=== PATIENT | male | born 1950 | race Caucasian/White ===

== ENCOUNTER 2019-12-08 09:27 | Outpatient (CLI) | payer MEDICARE, SELFPAY ==
--- NOTE | 2019-12-08 09:29 | ECG_ITS ---
Measurements Intervals [place] Rate: 68 P: 68 AK: 179 QRS: 18 QRSD: 100 T: 53 QT: 370 QTc: 395 Interpretive Statements SINUS RHYTHM DELAYED PRECORDIAL R/S TRANSITION BORDERLINE ECG Electronically Signed On 12-08-2019 11:09:04 GARDE MANAGER by Sridhar Rios D.O.
== END 2019-12-08 09:28 | disposition home or self-care (01) ==
PROVIDERS: PCP Internal Medicine; Visit Provider Orthopaedic Surgery
DX: I10 Essential (primary) hypertension (principal); R94.31 Abnormal electrocardiogram [ECG] [EKG]
CPT/HCPCS: 93005

== ENCOUNTER 2019-12-18 00:39 | Day surgery (SDC) | payer MEDICARE, SELFPAY ==
[2019-11-30 14:19] VITALS: BMI 32.8
[2019-12-18] VITALS (9 sets, daily range): BP systolic 98–148; BP diastolic 56–87; PULSE 56–80; RESP 14–18; TEMP 36.3–36.6; O2SAT 94–98
[2019-12-18] MEDS: LACTATED RINGERS 1,000 ML 30 ML IV CONT ×2 (08:10→11:35)
--- NOTE | 2019-12-18 08:41 | WPDANESEPPF ---
Anes - Initial Pre Proc Eval Procedure: Operation Date: 12/18/19 09:00 Proposed Procedures p Right Open Rotator Cuff Repair With Distal Clavicle Excision - Momo Trinidad MD Date/Time: 12/18/19 08:41 Surgeon: Momo Trinidad MD Pre Op Diagnosis: Right Rotator Cuff Tear With AC Arthritis Patient Data Age: 69 Gender: M Height: 6 ft 2 in Weight: 116.3 kg Last Vital Signs Temp 36.6 C 12/18/19 07:30 Pulse 67 12/18/19 07:30 Resp 18 12/18/19 07:30 BP 148/87 H 12/18/19 07:30 Pulse Ox 98 12/18/19 07:30 Allergies Allergy/AdvReac Type Severity Reaction Status Date / Time codeine Allergy Unknown Unknown-STRANGE Verified 12/18/19 08:13 FEELING & TEARFULL Home Medications Medication Instructions Recorded Confirmed Type ascorbic acid (vitamin C) 1,000 mg 500 mg PO BID 10/04/19 12/18/19 History tablet aspirin 325 mg tablet 325 mg PO DAILY 10/04/19 12/18/19 History biotin 10,000 mcg capsule 10,000 mcg PO DAILY 10/04/19 12/18/19 History calcium carbonate 600 mg calcium 600 mg PO DAILY 10/04/19 12/18/19 History (1,500 mg) tablet cetirizine 10 mg capsule 10 mg PO DAILY cap 10/04/19 11/30/19 History lisinopril 30 mg tablet 30 mg PO DAILY 10/04/19 12/18/19 History vitamin E (dl, acetate) 400 unit 400 unit PO DAILY 10/04/19 12/18/19 History capsule cholecalciferol (vitamin D3) 5,000 unit PO DAILY 11/30/19 12/18/19 History cyanocobalamin (vitamin B-12) 2,500 mcg PO DAILY 11/30/19 12/18/19 History magnesium 400 mg PO DAILY 11/30/19 12/18/19 History multivitamin 1 tablet PO DAILY 11/30/19 12/18/19 History oxymetazoline 1 spray INTRANASAL HS 11/30/19 12/18/19 History pyridoxine (vitamin B6) 100 mg PO BID 11/30/19 12/18/19 History Patient hx anesthesia problems: none Family hx anesthesia problems: none PMFSH Past Medical History Medical History Hypertension QUENTIN (obstructive sleep apnea) Psoriasis Family History Family History Sibling Family history of arthritis Patient's sister is Mother Patient's mother is Father Patient's father is Other Diabetes mellitus Family history of malignant neoplasm Hypertension Social History Social History Smoking status: Former smoker Second hand tobacco smoke exposure: No Smoking end date: 11/01/71 Alcohol intake: current Anes - Eval Final PreProcedure Day of Procedure 12/18/19 08:41 Patient weight: obese Heart: regular rate and rhythm Lungs: clear to auscultation Airway: Mallampati scale class II Neurological: alert and oriented Last oral intake: >/= 8 hours ASA classification: III Emergent: no Anesthetic plan: proceed Anesthesia type and monitoring: general LMA and standard monitoring Informed Consent: The patient's anesthetic plan and its attendant risks and benefits were discussed with the patient/family/POA. Questions were solicited and answers provided to the satisfaction of the patient/family/POA.
--- NOTE | 2019-12-18 09:25 | WPDHPUPDATE1 ---
History and Physical Update Update Date/Time: 12/18/19 09:25 History and Physical has been reviewed, including an updated exam of the patient. There are NO changes in the patient's condition. Risks, benefits, and alternatives have been discussed and questions answered. Patient agrees to proceed with procedure.
--- NOTE | 2019-12-18 09:44 | WPDANESPNB ---
Anes - Peripheral Nerve Block Date/Time: 12/18/19 09:44 I have discussed with the patient/family/POA the placement of a peripheral nerve block for post-operative pain management, including associated risks, benefits, complications, and side effects. Alternative methods of post-operative analgesia were detailed. Questions were solicited and answers provided to the satisfaction of the patient/family/POA. Time-Out: A pre-procedural Time-Out was completed immediately before starting the procedure and confirmed: Patient Identification, Site, Procedure, Patient Position and the Availability of Requisite Equipment. Clinical Indications: Acute post-operative pain management requested by the operative surgeon. Nerve Block Insertion Note Anes-nerve block: interscalene right Needle: 22 gauge, stimulating, insulated echogenic needle. Needle length: 50 mm Technique: nerve stimulation lost at (mA) (0.3) and ultrasound Injectate: bupivacaine 0.5% with epi 5 mcg/ml (30ml) Observations: tolerated well Complications: none Procedure start time:: 934 Procedure end time:: 940
[2019-12-18] MEDS: ceFAZolin 2 GM/D5W 50 ML 2 GM/50 ML BAG IVPB (09:50)
[2019-12-18] MEDS: BUPIVACAINE/EPINEPHRINE 0.25% 10 ML VIAL INFILTRATE (10:52)
--- NOTE | 2019-12-18 11:52 | PM.PROC ---
Procedure Note - Detailed Date of procedure: 12/18/19 Pre-op diagnosis: Right Rotator Cuff Tear With AC Arthritis Post-op diagnosis: same Procedure performed: Right shoulder rotator cuff repair with acromioplasty and distal clavicle excision Description of procedure: Patient was identified and proper site identified. In the preop holding area the anesthesia team performed a right upper extremity block. He was then taken to the operating room and transferred to the or table taking care to pad the torso and extremities. After general anesthetic induction and intubation, he was put in a semi beach chair position in the usual manner for a right shoulder procedure. His head was secured taking care to neither rotate nor extend the head and neck. The right upper extremity was prepped and draped free in usual sterile fashion. The subcutaneous tissue in the area of the incision was injected with 10 cc of 0.25% Marcaine and epinephrine solution. An oblique anterior incision was made extending from the AC joint distally in line with the fibers of the deltoid. Subcutaneous tissue was sharply dissected down to the deltoid fascia. The deltoid was dissected off the anterior portion of the acromion in the distal end of the clavicle. A 2 cm split was made at the junction between the anterior and middle thirds of the deltoid. Using the microsagittal saw the last 8 mm of clavicle removed. The saw was also used to perform the acromioplasty and then the undersurface of the acromion was rasped smooth. The cuff was inspected. The tear was oblique and the edges were able to be brought back into close proximity. The edges were freshened up and the tuberosity prepared for the repair. A [id number] repair with 2. Ethibond suture was carried out and then 2. Ethibond suture passed through a bony bridge was used to secure the tendon back to the prepared greater tuberosity. This gave a peralta repair which was stable as the shoulder was taken through range of motion. The wound was irrigated with sterile antibiotic solution. The deltoid was repaired back to the acromion with 2. Ethibond suture passed through bone and the remainder of the deltoid repair carried out with 2. Vicryl. Subcutaneous tissue was reapproximated with 2. Strata fix and then tissue adhesive used for the skin. Sterile dressing was applied. There were no known intraoperative complications, and perioperative antibiotics were administered. [facility] Surgeon: Momo Trinidad MD Print Press Operator: Jake Estimated blood loss (mL): 30 Drains: No Packing: No Pathology: none sent Complications: No immediate complications Condition: stable Disposition: PACU
== END 2019-12-18 13:25 | disposition home or self-care (01) ==
PROVIDERS: PCP Internal Medicine; Visit Provider Orthopaedic Surgery
PROC: (CPT 23420; principal; 2019-12-18 09:00)
DX: M75.101 Unspecified rotator cuff tear or rupture of right shoulder, not specified as traumatic (principal); M19.011 Primary osteoarthritis, right shoulder; G89.18 Other acute postprocedural pain; I10 Essential (primary) hypertension; G47.33 Obstructive sleep apnea (adult) (pediatric); L40.9 Psoriasis, unspecified; Z79.82 Long term (current) use of aspirin; Z87.891 Personal history of nicotine dependence; E66.9 Obesity, unspecified; Z68.32 Body mass index [BMI] 32.0-32.9, adult
CPT/HCPCS: 23120; 23420; 64415; A4565; J0690; J1100; J1170; J2250; J2405; J2704; J3010; J7120

== ENCOUNTER 2023-04-16 08:05 | Outpatient (CLI) | payer MEDICARE, SELFPAY ==
--- NOTE | 2023-04-29 15:50 | WPDSLEEPSTUD ---
Sleep Study Date of Study: 04/16/23 Ordering Provider: Mohinder Cardoso DO Interpreting Physician: Melani Chong MD Sleep Study Type: Split Polysomnogram Height: 1.85 m Weight: 117.934 kg Body Mass Index: 34.2 Neck Circumference (inches): 18 Holly: 0 Reason for Sleep Study History of severe obstructive sleep apnea, * 12/19/2009, severe obstructive sleep apnea, AHI 81.6, desaturation to 85%, severe myoclonus optimal pressure CPAP 12 cm Sleep History Radhames Mims is a 73-year-old man with history of severe obstructive sleep apnea diagnosed in 2009. His optimal pressure was CPAP 12 cm. He is being tested now because his CPAP broke. It is over 7 years old. He was using it routinely and he was benefiting from it. While using CPAP, he never awakens from sleep short of breath. He never at night with heartburn, belching or cough.??He never snores, never snores loudly enough that others complain. He never has trouble sleeping when he has a cold. He never wakes up gasping for breath during the night. He never has breathing problems at night. He never sweats excessively at night. He never notices his heart pounding or beating irregularly during the night. He never falls asleep during the day. He never falls asleep involuntarily and never falls asleep while driving. He never experiences loss of muscle tone with strong emotion. He never feels paralyzed on waking or falling asleep. He never experiences vivid dreams upon waking or falling asleep. He never feels afraid of going to sleep. He never has nightmares. He rarely recalls his dreams. He never has thoughts racing through his mind. He never feels sad or depressed. He never feels anxiety or worry about things. He never notices parts of his body jerk. He never kicks during the night. He never feels crawling or aching feelings in his legs. He never feels leg pain at night. He never grinds his teeth and never has morning jaw pain. He never feels bothered by pain during the day and is never awakened by pain during the night. He wakes up feeling stiff, sore, and achy in the morning with pain in his neck, spine, or joints. Normal bedtime is around 9:30 p.m. usually falling asleep within 30-40 minutes. He typically gets about 8 hours of sleep per night. His wake up time is 6-7 a.m.. Habits:??Tobacco: former Caffeine: none. Alcohol: none Recreational substances: none PMFSH Past Medical History Medical History Hypertension QUENTIN (obstructive sleep apnea) Psoriasis Surgical History Surgical History Right rotator cuff tear Arthroscopic debridement December 2019 Family History Family History Sibling Family history of arthritis Patient's sister is Mother Patient's mother is Father Patient's father is Other Diabetes mellitus Family history of malignant neoplasm Hypertension Social History Social History Smoking packs per day: 0.25 Smoking cigarettes per day: 5.0 Years smoked: 7 Smoking pack-years: 1.75 Smoking status: Former smoker Second hand tobacco smoke exposure: No Smoking end date: 11/01/71 Alcohol intake: current Alcohol use details: occational Lack of Transportation: No Lack of Food: Never True Current Housing: I Have Housing Concerned About Future Housing: No Difficulty Paying Gas/Electric Bills: No Difficulty Paying for Meds: No Currently Unemployed: No Education: Associate Degree Difficulty w/ Childcare or Family Care: No Medications Home Medications Medication Instructions Recorded Confirmed Type ascorbic acid (vitamin C) 1,000 mg 500 mg PO BID 10/04/19 04/05/23 History tablet aspirin 325 mg tablet
[2023-04-29 16:15] VITALS: BMI 34.2
== END 2023-04-17 06:27 | disposition home or self-care (01) ==
PROVIDERS: PCP Internal Medicine; Visit Provider Internal Medicine
DX: G47.33 Obstructive sleep apnea (adult) (pediatric) (principal)
CPT/HCPCS: 95811

== ENCOUNTER 2024-03-02 01:00 | Day surgery (SDC) | payer MEDICARE, SELFPAY ==
[2024-02-15 14:17] VITALS: BMI 33.6
[2024-03-02 06:49] VITALS: BP 140/97; PULSE 96; RESP 18; TEMP 36.2; O2SAT 96
[2024-03-02] MEDS: LACTATED RINGERS 1,000 ML 150 ML IV CONT (06:59)
--- NOTE | 2024-03-02 07:47 | PM.HPGS ---
History of Present Illness History of Present Illness Consent: Risks, benefits, and alternatives have been discussed and questions answered. Patient agrees to proceed with procedure. Chief complaint: person hx colon polyps Narrative: Radhames Mims is a 74 year old male with colon polyps, last colonoscopy 2018 Review of Systems Review of Systems: All systems reviewed & are unremarkable except as noted in HPI and below PMFSH Past Medical History Medical History (Updated 03/02/24 @ 07:49 by Peter Jacobson MD) Colon polyp Hypertension QUENTIN (obstructive sleep apnea) Psoriasis Surgical History Surgical History Right rotator cuff tear Arthroscopic debridement December 2019 Family History Family History Sibling Family history of arthritis Patient's sister is Mother Patient's mother is Father Patient's father is Other Diabetes mellitus Family history of malignant neoplasm Hypertension Social History Social History Smoking packs per day: 0.25 Smoking cigarettes per day: 5.0 Years smoked: 7 Smoking pack-years: 1.75 Smoking status: Former smoker Tobacco type: cigarettes Second hand tobacco smoke exposure: No Smoking end date: 11/01/71 Alcohol intake: current Alcohol use details: occational Substance use: never Substance use type: does not use Lack of Transportation: No Lack of Food: Never True Current Housing: I Have Housing Concerned About Future Housing: No Difficulty Paying Gas/Electric Bills: No Difficulty Paying for Meds: No Currently Unemployed: No Education: Associate Degree Difficulty w/ Childcare or Family Care: No Living arrangements: with family Spiritual care concerns: No Meds Home Medications and Allergies Home Medications Medication Instructions Recorded Confirmed Type ascorbic acid (vitamin C) 1,000 mg 1,000 mg PO BID 10/04/19 02/15/24 History tablet biotin 10,000 mcg capsule 10,000 mcg PO DAILY 10/04/19 02/15/24 History calcium carbonate (Calcium 600) 600 mg PO BID 10/04/19 02/15/24 History cetirizine 10 mg capsule 10 mg PO DAILY 10/04/19 02/15/24 History vitamin E (dl, acetate) 180 mg 400 unit PO DAILY 10/04/19 02/15/24 History (400 unit) capsule cholecalciferol (vitamin D3) 125 5,000 unit PO HS 11/30/19 02/15/24 History mcg (5,000 unit) disintegrating tablet multivitamin 1 tablet PO DAILY 11/30/19 02/15/24 History lisinopril 30 mg tablet 30 mg PO DAILY #90 tabs 12/08/23 02/15/24 Rx Msm 1,500 mg PO BID 02/15/24 02/15/24 History magnesium oxide 400 mg PO BID 02/15/24 02/15/24 History mecobalamin (vitamin B12) 5,000 5,000 mcg PO QPM 02/15/24 02/15/24 History mcg disintegrating tablet pyridoxine (vitamin B6) 100 mg 100 mg PO BID 02/15/24 02/15/24 History tablet thiamine HCl (vitamin B1) 250 mg 250 mg PO DAILY 02/15/24 02/15/24 History tablet Allergies Allergy/AdvReac Type Severity Reaction Status Date / Time codeine AdvReac Unknown Unknown-STRANGE Verified 03/02/24 06:47 FEELING & TEARFULL Vital Signs Vital Signs - 24 hr 03/02/24 06:49 Temperature 97.2 F L Pulse Rate 96 Respiratory Rate 18 Blood Pressure 140/97 H Pulse Oximetry 96 Oxygen Delivery Room Air Exam Const: General: comfortable and no acute distress HENMT: Face/Nose/Sinus: Normal nares present Eyes: General: appearance normal, both eyes and all related structures Neck: Neck: no JVD Resp: Auscultation: clear to auscultation bilaterally Cardio: Rate: regular rate Rhythm: regular rhythm GI: Inspection: non-distended GI Palp: Yes Soft to palpation Skin: General skin exam: normal color Neuro: General: gait normal Speech: normal speech Extrem: General: normal to inspe
--- NOTE | 2024-03-02 07:49 | WPDANESEPPF ---
Anes - Initial Pre Proc Eval Procedure: Operation Date: 03/02/24 08:00 Proposed Procedures p Colonoscopy - Peter Jacobson MD Date/Time: 03/02/24 07:49 Surgeon: Peter Jacobson MD Pre Op Diagnosis: person hx colon polyps Patient Data Age: 74 Gender: M Height: 1.87 m Weight: 113.5 kg Last Vital Signs Temp 97.2 F L 03/02/24 06:49 Pulse 96 03/02/24 06:49 Resp 18 03/02/24 06:49 BP 140/97 H 03/02/24 06:49 Pulse Ox 96 03/02/24 06:49 O2 Del Method Room Air 03/02/24 06:49 Allergies Allergy/AdvReac Type Severity Reaction Status Date / Time codeine AdvReac Unknown Unknown-STRANGE Verified 03/02/24 06:47 FEELING & TEARFULL Home Medications Medication Instructions Recorded Confirmed Type ascorbic acid (vitamin C) 1,000 mg 1,000 mg PO BID 10/04/19 02/15/24 History tablet biotin 10,000 mcg capsule 10,000 mcg PO DAILY 10/04/19 02/15/24 History calcium carbonate (Calcium 600) 600 mg PO BID 10/04/19 02/15/24 History cetirizine 10 mg capsule 10 mg PO DAILY 10/04/19 02/15/24 History vitamin E (dl, acetate) 180 mg 400 unit PO DAILY 10/04/19 02/15/24 History (400 unit) capsule cholecalciferol (vitamin D3) 125 5,000 unit PO HS 11/30/19 02/15/24 History mcg (5,000 unit) disintegrating tablet multivitamin 1 tablet PO DAILY 11/30/19 02/15/24 History lisinopril 30 mg tablet 30 mg PO DAILY #90 tabs 12/08/23 02/15/24 Rx Msm 1,500 mg PO BID 02/15/24 02/15/24 History magnesium oxide 400 mg PO BID 02/15/24 02/15/24 History mecobalamin (vitamin B12) 5,000 5,000 mcg PO QPM 02/15/24 02/15/24 History mcg disintegrating tablet pyridoxine (vitamin B6) 100 mg 100 mg PO BID 02/15/24 02/15/24 History tablet thiamine HCl (vitamin B1) 250 mg 250 mg PO DAILY 02/15/24 02/15/24 History tablet Patient hx anesthesia problems: none Family hx anesthesia problems: none Results Review: All pre-operative results and documents have been reviewed as part of the pre-operative evaluation. [facility] Past Medical History Medical History (Updated 03/02/24 @ 07:49 by Peter Jacobson MD) Colon polyp Hypertension QUENTIN (obstructive sleep apnea) Psoriasis Surgical History Surgical History Right rotator cuff tear Arthroscopic debridement December 2019 Family History Family History Sibling Family history of arthritis Patient's sister is Mother Patient's mother is Father Patient's father is Other Diabetes mellitus Family history of malignant neoplasm Hypertension Social History Social History Smoking packs per day: 0.25 Smoking cigarettes per day: 5.0 Years smoked: 7 Smoking pack-years: 1.75 Smoking status: Former smoker Tobacco type: cigarettes Second hand tobacco smoke exposure: No Smoking end date: 11/01/71 Alcohol intake: current Alcohol use details: occational Substance use: never Substance use type: does not use Lack of Transportation: No Lack of Food: Never True Current Housing: I Have Housing Concerned About Future Housing: No Difficulty Paying Gas/Electric Bills: No Difficulty Paying for Meds: No Currently Unemployed: No Education: Associate Degree Difficulty w/ Childcare or Family Care: No Living arrangements: with family Spiritual care concerns: No Anes - Eval Final PreProcedure Day of Procedure 03/02/24 07:49 Patient weight: obese Heart: regular rate and rhythm Lungs: clear to auscultation Airway: Mallampati scale class III Neurological: alert and oriented Last oral intake: >/= 8 hours ASA classification: III Emergent: no Anesthetic plan: proceed Anesthesia type and monitoring: general GIVS and standard monitoring Results Review: All pre-operative
[2024-03-02 08:06] VITALS: BP 107/78; PULSE 74; RESP 25; O2SAT 96
[2024-03-02 08:16] VITALS: BP 127/76; PULSE 70; RESP 18; O2SAT 98
[2024-03-02 08:26] VITALS: BP 134/80; PULSE 74; RESP 18; O2SAT 97
== END 2024-03-02 08:33 | disposition home or self-care (01) ==
PROVIDERS: PCP Internal Medicine; Visit Provider Internal Medicine Gastroenterology
PROC: 0DJD8ZZ Inspection of Lower Intestinal Tract, Via Natural or Artificial Opening Endoscopic (ICD-10-PCS; CPT 45378; principal; 2024-03-02 08:00)
DX: Z12.11 Encounter for screening for malignant neoplasm of colon (principal); K64.8 Other hemorrhoids; K57.30 Diverticulosis of large intestine without perforation or abscess without bleeding; I10 Essential (primary) hypertension; G47.33 Obstructive sleep apnea (adult) (pediatric); E66.9 Obesity, unspecified; Z68.32 Body mass index [BMI] 32.0-32.9, adult; Z98.890 Other specified postprocedural states; Z87.891 Personal history of nicotine dependence; Z86.010 Personal history of colon polyps; Z80.9 Family history of malignant neoplasm, unspecified
CPT/HCPCS: G0105; J2704; J7120

== ENCOUNTER 2025-03-15 11:56 | Outpatient (CLI) | payer MEDICARE, SELFPAY ==
--- NOTE | ~2025-03-15 | XR_ITS ---
Left Shoulder Technique: AP and scapular Y views were obtained. Clinical History: Pain Findings: No fracture or dislocation is seen. Osseous alignment is anatomic. The glenohumeral and acr omioclavicular joints demonstrate mild to moderate degenerative change. Possible loose body versus [place] projecting over the surgical neck of the humerus. Soft tissues are unremarkable. Impression: Degenerative changes, as above. Reviewed, dictated and finalized at location M. Impression: Degenerative changes, as above.
== END 2025-03-15 11:57 | disposition home or self-care (01) ==
LOC: MICIMG 11:58
PROVIDERS: PCP Nurse Practitioner; Visit Provider Nurse Practitioner
DX: M25.512 Pain in left shoulder (principal)
CPT/HCPCS: 73030